=== PATIENT | female | born 1975 | race Hispanic/Latino ===

== ENCOUNTER 2021-12-22 21:48 | Emergency (ER) | payer OTHER, MEDICAID ==
[~2021-12-22] VITALS: Ht 167.6 cm; Wt 144.7 kg
[2021-12-22] MEDS ORDERED: KETOROLAC 60 MG VIAL (30MG/ML) IM ONE (22:30)
[2021-12-22] MEDS ORDERED: HYDROCODONE/ACETAMINOPHEN 5/325 MG TAB PO ONE (22:30)
[2021-12-22] MEDS ORDERED: CYCLOBENZAPRINE HCL 10 MG TABLET PO ONE (22:30)
[2021-12-22] MEDS ORDERED: CYCL10TA16 PO (23:27)
[2021-12-22] MEDS ORDERED: NAPR-1180 PO (23:27)
[2021-12-22 23:39] VITALS: BP 132/71
== END 2021-12-22 23:42 | disposition home or self-care (01) ==
LOC: EDH 21:48
DX: M54.42 Lumbago with sciatica, left side (principal); M47.816 Spondylosis without myelopathy or radiculopathy, lumbar region; E11.9 Type 2 diabetes mellitus without complications; E66.01 Morbid (severe) obesity due to excess calories; Z90.49 Acquired absence of other specified parts of digestive tract; Z79.1 Long term (current) use of non-steroidal anti-inflammatories (NSAID); Z68.43 Body mass index [BMI] 50.0-59.9, adult
CPT/HCPCS: 99284; 73502; 72100; 96372; J1885

== ENCOUNTER 2022-03-22 21:15 | Emergency (ER) | payer OTHER, MEDICAID ==
[~2022-03-22] VITALS: Ht 167.6 cm; Wt 140.6 kg
[~2022-03-22 21:15] MED LIST: CYCL10TA16 PO; NAPR-1180 PO
[2022-03-22 22:07] LABS: BASOPHILS % (AUTO) 0.4 % (0.0-5.0); EOSINOPHILS % (AUTO) 0.7 % (0.0-8.0); HEMATOCRIT 37.9 % (36-48); LYMPHOCYTES % (AUTO) 11.7 % (21.0-51.0); MEAN CORPUSCULAR HEMOGLOBIN 26.5 pg (27.0-33.0); MEAN CORPUSCULAR HGB CONC 32.2 g/dL (32.0-36.0); MEAN CORPUSCULAR VOLUME 82.4 fL (79-99); MONOCYTES % (AUTO) 7.1 % (3.0-13.0); NEUTROPHILS % (AUTO) 79.5 % (40.0-77.0); PLATELET COUNT (AUTO) 334 K/uL (130-400); RED CELL DISTRIBUTION WIDTH 14.3 % (11.0-15.5)
[2022-03-22 22:18] LABS: CREATININE 0.9 mg/dL (0.5-1.5); POTASSIUM 3.7 mmol/L (3.5-5.1)
[2022-03-22 22:22] LABS: TOTAL PROTEIN, SERUM 7.1 g/dL (6.0-8.3)
[2022-03-22] MEDS ORDERED: 0.9%NACL 1000ML 1,000 ML IV ONE (22:30)
[2022-03-22 22:47] LABS: APPEARANCE,URINE CLEAR (CLEAR); BILIRUBIN,URINE NEGATIVE (NEGATIVE); COLOR,URINE LIGHT-YELLOW (YELLOW); GLUCOSE, URINE (UA) NEGATIVE (NEGATIVE); KETONES,URINE NEGATIVE (NEGATIVE); LEUKOCYTE ESTERASE ,URINE 250 Leu/uL (NEGATIVE); NITRATE,URINE 2+ (NEGATIVE); OCCULT BLOOD,URINE NEGATIVE (NEGATIVE); PH,URINE 6.5 (5.0-8.0); PROTEIN,URINE NEGATIVE (NEGATIVE); UROBILINOGEN,URINE 0.2 mg/dL (0.2-1.0)
[2022-03-22 22:50] LABS: HCG,QUALITATIVE URINE NEGATIVE (NEGATIVE)
[2022-03-22] MEDS ORDERED: KETOROLAC 15MG/ML VIAL (15MG/ML) IV ONE (23:00)
[2022-03-22] MEDS ORDERED: MORPHINE 4 MG SYG IVP ONE (23:00)
[2022-03-22] MEDS ORDERED: ONDANSETRON 4MG INJ IVP ONE (23:00)
[2022-03-22 23:08] LABS: BACTERIA,URINE FEW /HPF (None Seen); MUCUS,URINE RARE LPF (None Seen); SQUAMOUS EPITHELIAL CELL,UR FEW /HPF (0-2); WBC,URINE 26-50 /HPF (0-1)
[2022-03-22] MEDS ORDERED: NAPR500T6 PO (23:34)
[2022-03-22] MEDS ORDERED: CEPH500B PO (23:34)
[2022-03-22] MEDS ORDERED: CYCL10TA16 PO (23:34)
[2022-03-22] MEDS ORDERED: GUAIF10 PO (23:34)
[2022-03-22] MEDS ORDERED: ACET-66 PO (23:34)
[2022-03-23 00:12] VITALS: BP 133/74
== END 2022-03-23 01:20 | disposition home or self-care (01) ==
LOC: EDH 21:15
DX: U07.1 COVID-19 (principal); N39.0 Urinary tract infection, site not specified; M25.551 Pain in right hip; E11.9 Type 2 diabetes mellitus without complications; E66.01 Morbid (severe) obesity due to excess calories; Z68.43 Body mass index [BMI] 50.0-59.9, adult; Z90.49 Acquired absence of other specified parts of digestive tract
CPT/HCPCS: 99285; 74176; 96374; 96375; 87635; 96361; 80053; 85025; 87077; 87088; 87186; 87804 ×2; 81001; 81025; 36415; C9803; J7030; J2405; J2270; J1885

== ENCOUNTER 2022-09-20 08:45 | Emergency (ER) | payer OTHER, MEDICAID ==
[~2022-09-20] VITALS: Ht 167.6 cm; Wt 135.2 kg
[~2022-09-20 08:45] MED LIST changes: +ACET-66 PO; +CEPH500B PO; +GUAIF10 PO; +NAPR500T6 PO
[2022-09-20] MEDS ORDERED: LACTATED RINGERS 1000ML 1,000 ML IV ONE (10:00)
[2022-09-20] MEDS ORDERED: MORPHINE 2 MG SYG IVP ONE (10:00)
[2022-09-20] MEDS ORDERED: PANTOPRAZOLE 40 MG/VIAL IVP ONE (10:00)
[2022-09-20] MEDS ORDERED: ONDANSETRON 4MG INJ IVP ONE (10:00)
[2022-09-20 10:11] LABS: APPEARANCE,URINE CLOUDY (CLEAR); BILIRUBIN,URINE NEGATIVE (NEGATIVE); COLOR,URINE YELLOW (YELLOW); GLUCOSE, URINE (UA) NEGATIVE (NEGATIVE); KETONES,URINE NEGATIVE (NEGATIVE); LEUKOCYTE ESTERASE ,URINE NEGATIVE Leu/uL (NEGATIVE); NITRATE,URINE NEGATIVE (NEGATIVE); OCCULT BLOOD,URINE NEGATIVE (NEGATIVE); PROTEIN,URINE 20 mg/dL (NEGATIVE); UROBILINOGEN,URINE 0.2 mg/dL (0.2-1.0)
[2022-09-20 10:27] LABS: BACTERIA,URINE RARE /HPF (None Seen); MUCUS,URINE FEW LPF (None Seen); OTHER CASTS, URINE 1 /LPF (None Seen); SQUAMOUS EPITHELIAL CELL,UR MANY /HPF (0-2)
[2022-09-20 10:33] LABS: HCG,QUALITATIVE URINE NEGATIVE (NEGATIVE)
[2022-09-20 10:34] LABS: BASOPHILS % (AUTO) 0.4 % (0.0-5.0); EOSINOPHILS % (AUTO) 0.3 % (0.0-8.0); HEMATOCRIT 44.9 % (36-48); LYMPHOCYTES % (AUTO) 18.3 % (21.0-51.0); MEAN CORPUSCULAR HEMOGLOBIN 25.7 pg (27.0-33.0); MEAN CORPUSCULAR VOLUME 83.1 fL (79-99); MONOCYTES % (AUTO) 5.8 % (3.0-13.0); NEUTROPHILS % (AUTO) 74.9 % (40.0-77.0); PLATELET COUNT (AUTO) 401 K/uL (130-400); RED CELL DISTRIBUTION WIDTH 14.9 % (11.0-15.5); WHITE BLOOD COUNT (AUTO) 11.7 K/uL (4.8-10.8)
[2022-09-20 11:01] LABS: ALBUMIN 3.4 g/dL (3.5-5.0); CREATININE 0.8 mg/dL (0.5-1.5); POTASSIUM 4.2 mmol/L (3.5-5.1); TOTAL PROTEIN, SERUM 8.2 g/dL (6.0-8.3)
[2022-09-20] MEDS ORDERED: IOHEXOL-350 75 ML VIAL IV ONE (12:42)
[2022-09-20] MEDS ORDERED: ONDA4TAB10 PO (14:31)
[2022-09-20 14:39] VITALS: BP 126/82; PULSE 72; RESP 16; O2SAT 97
== END 2022-09-20 14:50 | disposition home or self-care (01) ==
LOC: EDH 08:45
DX: K52.9 Noninfective gastroenteritis and colitis, unspecified (principal); E11.9 Type 2 diabetes mellitus without complications; E66.01 Morbid (severe) obesity due to excess calories; Z90.49 Acquired absence of other specified parts of digestive tract
CPT/HCPCS: 99285; 74177; 96374; 96361; 96375; 80053; 83690; 85025; 81001; 81025; 36415; J7120; J2270; J2405; C9113; Q9967

== ENCOUNTER 2022-12-14 20:18 | Emergency (ER) | payer OTHER, MEDICAID ==
[~2022-12-14] VITALS: Ht 167.6 cm; Wt 135.2 kg
[~2022-12-14 20:18] MED LIST changes: +ONDA4TAB10 PO
[2022-12-14 20:45] VITALS: RESP 18
[2022-12-14] MEDS ORDERED: MECL-262 PO (21:23)
[2022-12-14] MEDS ORDERED: MECLIZINE HCL 25 MG TABLET PO ONE (21:30)
== END 2022-12-14 21:37 | disposition home or self-care (01) ==
LOC: EDH 20:18
DX: H81.10 Benign paroxysmal vertigo, unspecified ear (principal); E11.9 Type 2 diabetes mellitus without complications; E66.01 Morbid (severe) obesity due to excess calories; Z90.49 Acquired absence of other specified parts of digestive tract; Z68.42 Body mass index [BMI] 45.0-49.9, adult
CPT/HCPCS: 99282

== ENCOUNTER → 2023-01-04 | Emergency (ER) | payer MEDICAID, OTHER ==
[~2023-01-04] VITALS: Ht 167.6 cm; Wt 136.5 kg
[~2023-01-04] MED LIST changes: +CEPHALEXIN 500 MG CAPSULE PO ONE; -CYCL10TA16 PO; -GUAIF10 PO; +MECL-262 PO; -NAPR-1180 PO; -NAPR500T6 PO; +SULF1TAB42 PO; +SULFAMETHOX-TMP DS 800/160 TAB PO SCH
[2023-01-04 02:51] VITALS: BP 139/71; PULSE 93; RESP 18
== END ==
LOC: EDH 02:50
DX: L03.116 Cellulitis of left lower limb (principal); L02.416 Cutaneous abscess of left lower limb; E11.9 Type 2 diabetes mellitus without complications; E66.01 Morbid (severe) obesity due to excess calories; Z90.49 Acquired absence of other specified parts of digestive tract